=== PATIENT | male | born 1980 | race Caucasian/White ===

== ENCOUNTER 2018-02-12 12:49 | Emergency (ER) | payer OTHER ==
[~2018-02-12] VITALS: Ht 167.6 cm; Wt 117.9 kg
--- NOTE | ~2018-02-12 | EKG ---
[address] [address] ELECTROCARDIOGRAM REPORT Name: YISEL REARDON Room #: DEP [facility]#: [id number] Admission: 02/12/18 Attend Phys: Discharge: 02/12/18 Date of : 76 Report #: [id number] THIS REPORT FOR: //name// [facility] ED Test Date: 2018-02-12 Test Time: 13:03:40 Pat Name: YISEL REARDON Department: Room: Gender: M Visual Arts Teacher: KF : 1980 Requested By: Anayeli Flores Order Number: [id number] MD: Salbador Sifuentes Measurements Intervals [place] Rate: 75 P: 39 PA: 162 QRS: 20 QRSD: 85 T: 19 QT: 363 QTc: 406 Interpretive Statements Sinus rhythm Baseline wander in lead(s) V6 No previous ECG available for comparison Electronically Signed On 02-12-2018 16:18:15 CDT by Salbador Sifuentes [email or web address] <ELECTRONICALLY SIGNED> By: Salbador Sifuentes MD 02/12/18 1618 1303 1303 MD MARIXA Canas
[~2018-02-12 12:49] MED LIST: AUGMENTIN 875875 MG PO; BACTRIM DS TAB1 EACH PO; BENADRYL25 MG PO; CIPROFLOXACIN500 M1 PO; CIPROFLOXACIN500 M3 PO; FLOMAX PO; FLOMAX0.4 MG PO; HYDROCODON-ACE1 EAC7 PO; IBUPROFEN 800800 M1 PO; KEFLEX500 MG PO; LORTAB 5 MG/5001 TA1 PO; MEDROLDOSEPACK PO; NOHOMEMEDICATIONS; NORCO 5-325 TA1 EACH PO; ONDANSETRON HCL4 M1 PO; ONDANSETRON HCL4 M2 PO; PEPCID20 MG PO; PERCOCET 5-3251 EACH PO; PERCOCET PO; PHENERGAN 25 MG25 M1 PO; TORADOL 10 MG T10 MG PO; TRIAMCINOLONE A80 G2 TOP
[2018-02-12 13:44] LABS: ABSOLUTE NEUTROPHILS 4.4 thou/uL (1.4-8.2); EOSINOPHILS 1.4 % (0.0-3.0); HEMATOCRIT 42.2 % (42.0-52.0); HEMOGLOBIN 14.3 gm/dL (14.0-18.0); LYMPHOCYTES 34.4 % (24.0-44.0); MCH 29.3 pg (26.0-34.0); MCHC 33.8 g/dL (28.0-37.0); MCV 86.8 fL (80.0-100.0); MONOCYTES 7.5 % (1.0-8.0); PLATELET COUNT 305 thou/uL (150-400); POLYS 55.7 % (36.0-66.0); RBC 4.86 mil/uL (4.50-6.00); WBC 7.9 thou/uL (4.0-11.0)
[2018-02-12 13:51] LABS: ANION GAP 9 mmol/L (7-16); BUN 20 mg/dL (7-18); CALCIUM 8.8 mg/dL (8.5-10.1); CHLORIDE 105 mmol/L (98-107); CO2 26 mmol/L (21-32); CREATININE 0.9 mg/dL (0.7-1.3); GLUCOSE 113 mg/dL (74-106); POTASSIUM 3.7 mmol/L (3.5-5.1); SODIUM 140 mmol/L (136-145)
[2018-02-12 13:56] LABS: MAGNESIUM 2.1 mg/dL (1.8-2.4)
[2018-02-12 14:00] LABS: TROPONIN-I < 0.04 ng/mL (<0.06)
[2018-02-12] MEDS ORDERED: HYDROCODONE-AP1 EAC6 PO (15:42)
[2018-02-12 15:55] VITALS: BP 134/97
== END 2018-02-12 15:50 | disposition home or self-care (01) ==
LOC: ER 12:49
PROVIDERS: Emergency Medicine; Physician Assistant
DX: R07.89 Other chest pain (principal); R20.2 Paresthesia of skin; R20.0 Anesthesia of skin; R06.02 Shortness of breath; R51 Headache; R53.83 Other fatigue